=== PATIENT | female | born 1955 | race Caucasian/White ===

== ENCOUNTER → 2017-09-23 | Outpatient (CLI) | payer OTHER | END | disposition home or self-care (01) | LOC: KCIC 10:01 | DX: M75.91 Shoulder lesion, unspecified, right shoulder (principal) | CPT/HCPCS: 73060 ==

== ENCOUNTER → 2018-09-03 | Outpatient (CLI) | payer OTHER ==
--- NOTE | 2018-09-03 13:28 | KCIC ---
Right humerus radiograph 09/03/2018 12:00 AM INDICATION: Bone abnormality COMPARISON: None available. TECHNIQUE: Right humerus radiograph September 23, 2017 FINDINGS: There is no acute fracture or dislocation. Bone mineralization is within normal limits. Joint spaces are maintained. There is similar osseous excrescence along the proximal humerus with cortical medullary continuity suggestive of an osteochondroma. IMPRESSION: Similar appearance of the humerus compared to prior examination. If there is new or focal pain within this region, further evaluation MRI is recommended. Electronically signed by: Rahel Almodovar MD (09/03/2018 1:25 PM) [id number]
== END | disposition home or self-care (01) ==
LOC: KCIC 11:20
PROVIDERS: ATTEND Family Medicine
DX: M89.8X8 Other specified disorders of bone, other site (principal)
CPT/HCPCS: 73060

== ENCOUNTER → 2019-03-07 | Outpatient (CLI) | payer BC ==
--- NOTE | 2019-03-07 16:40 | KCIC ---
Study: MRI of the left hand without contrast INDICATION: Prior fall injury with hyperextension of the second through fifth digits. COMPARISON: None. TECHNIQUE: Multiplanar MR imaging of the left hand performed without contrast. FINDINGS: Degraded evaluation of the hand secondary to the large obtained [id number]. This particularly limits evaluation of the osseous and soft tissue structures on the T2-weighted sequences. Bones/cartilage: Apparent T2 signal elevation involving a few phalanges on the coronal T2 sequences artifactual and related to incomplete fat suppression. No signal correlate seen on the additional sequences. No acute fracture seen throughout the hand or wrist. Alignment is maintained. Though not well evaluated, degenerative changes are present at the thumb CMC joint appearing relatively mild. Ligaments: The capsuloligamentous structures of the digits are difficult to delineate however no gross abnormality is readily apparent. The ligaments of the wrist are incompletely characterized given the large [id number]. Musculotendinous: No abnormal bowstringing of the flexor tendons or empty tendon sheath. The extensor tendons appear to remain wall centered along the midline of the digits. The partially evaluated carpal tunnel is unremarkable. Muscular bulk is maintained. Miscellaneous: Large joint effusion seen throughout the hand or wrist. IMPRESSION: 1. Close evaluation of individual capsuloligamentous structures and small tendons throughout the hand is made difficult by the large obtained [id number]. Taking this into consideration, no gross abnormality is apparent such as capsuloligamentous injury or tendon disruption. If there is ongoing concern particularly for injury to a single digit, MRI with a dedicated finger coil would provide more complete evaluation. 2. No evidence for acute osseous injury throughout the hand or wrist. Mild degenerative changes partially evaluated at the thumb CMC joint. Electronically signed by: LESLYE TREVINO MD (03/07/2019 2:51 PM) [id number]
== END | disposition home or self-care (01) ==
LOC: KCIC MRI 10:40
PROVIDERS: ATTEND Family Medicine
DX: M19.042 Primary osteoarthritis, left hand (principal)
CPT/HCPCS: 73218

== ENCOUNTER → 2020-11-30 | Outpatient (CLI) | payer BC ==
--- NOTE | 2020-11-30 16:58 | KCIC ---
Site ID: [id number] EXAMINATION: XR KNEE 3 [id number]. HISTORY: 65 years Female Reason: Right hip and knee pain. / Spl. Instructions: Anterior/medial knee pain. / History: . COMPARISON: None. FINDINGS: No fracture, dislocation or radiopaque foreign body. The joint spaces and articular surfaces appea r unremarkable. IMPRESSION: Unremarkable exam. Electronically signed by: Orlando Hussein MD (11/30/2020 4:56 PM) [id number]
--- NOTE | 2020-11-30 18:02 | KCIC ---
EXAM: XR HIP (WITH OR WITHOUT PELVIS) RIGHT 1 VIEW 11/30/2020 2:00 PM CLINICAL INDICATION: Right knee and hip COMPARISON: None TECHNIQUE: AP view the pelvis and frog-leg lateral view of the FINDINGS: The bones appear demineralized. No acute fracture. Alignment is normal. Joint spaces are m aintained. Pubic symphysis and sacroiliac joints are remarkable. IMPRESSION: No acute osseous abnormality of the right hip. Electronically signed by: Mara Donald MD (11/30/2020 5:59 PM) [id number]
== END ==
LOC: KCIC 13:12
PROVIDERS: ATTEND Anesthesiology Pain Medicine
DX: M25.551 Pain in right hip (principal); M25.561 Pain in right knee
CPT/HCPCS: 73501; 73562